=== PATIENT | male | born 1945 ===

== ENCOUNTER 2024-01-08 08:02 | Outpatient (CLI) | payer MEDICARE ==
[2024-01-08] VITALS (21 sets, daily range): BP systolic 132–154; BP diastolic 69–88; PULSE 52–64
== END 2024-01-08 23:59 | disposition home or self-care (01) ==
LOC: CARD DIAG 08:02
PROVIDERS: ATTEND Internal Medicine Interventional Cardiology
DX: R00.1 Bradycardia, unspecified (principal); R42 Dizziness and giddiness; I10 Essential (primary) hypertension
CPT/HCPCS: 93660